=== PATIENT | female | born 1960 | race Caucasian/White ===

== ENCOUNTER 2020-10-07 10:51 | Outpatient (CLI) | payer MEDICARE, SELFPAY ==
[2020-10-07 18:49] LABS: Free T4 Free Thyroxine 0.83 ng/mL (0.78-2.19)
[2020-10-07 19:16] LABS: Cholesterol 308 mg/dL (0-200); HDL Direct 62 mg/dL; Triglycerides 141 mg/dL (<150)
[2020-10-07 19:27] LABS: LDL Cholesterol Direct 202 mg/dL
[2020-10-10 07:07] LABS: Triiodothyronine T3 Free 3.1 pg/mL (2.3-4.2)
== END 2020-10-07 10:52 | disposition home or self-care (01) ==
LOC: ANHBWCLAB 10:54
PROVIDERS: PCP Family Medicine; Visit Provider Family Medicine
DX: E07.9 Disorder of thyroid, unspecified (principal); E78.5 Hyperlipidemia, unspecified
CPT/HCPCS: 36415; 80061; 84439; 84443; 84481

== ENCOUNTER 2020-12-03 10:57 | Outpatient (CLI) | payer MEDICARE, SELFPAY ==
[2020-12-03 20:16] LABS: Add Urine Microscopic? YES; Appearance Urine Clear (Clear); Bilirubin Urine Negative (Negative); Blood Urine Negative (Negative); Color Urine Yellow (Yellow); Glucose Urine UA Negative (Negative); Ketones Urine Negative (Negative); Leukocyte Esterase Ur 1+ LEU/UL (NEGATIVE); Nitrate Urine Negative (Negative); Protein Urine Negative (Negative); RBC Urine 0-2 /hpf (0-2); Specific Grav Ur 1.013 (1.001-1.035); Squamous Epithelial Cell Urine Rare /hpf (Few); Urobilinogen Urine Negative mg/dL (<2.0)
== END 2020-12-03 10:58 | disposition home or self-care (01) ==
PROVIDERS: PCP Family Medicine; Visit Provider Family Medicine
DX: N30.90 Cystitis, unspecified without hematuria (principal)
CPT/HCPCS: 81001; 87086; 87088

== ENCOUNTER 2021-04-02 08:13 | Outpatient (CLI) | payer MEDICARE, SELFPAY ==
[2021-04-02 19:39] LABS: Free T4 Free Thyroxine 1.02 ng/mL (0.78-2.19)
[2021-04-05 08:38] LABS: Triiodothyronine T3 Free 3.2 pg/mL (2.3-4.2)
== END 2021-04-02 08:14 | disposition home or self-care (01) ==
PROVIDERS: PCP Family Medicine; Visit Provider Family Medicine
DX: R53.83 Other fatigue (principal); E03.9 Hypothyroidism, unspecified
CPT/HCPCS: 36415; 84439; 84443; 84481

== ENCOUNTER 2021-04-09 09:40 | Outpatient (CLI) | payer MEDICARE, SELFPAY ==
[2021-04-09 18:36] LABS: Hematocrit 42.8 % (37.0-47.0); Hemoglobin 13.6 g/dL (12.0-15.0); Mean Corpuscular HGB Conc 31.8 g/dl (32-36); Mean Corpuscular Hemoglobin 28.2 pg (26-34); Mean Corpuscular Volume 88.6 fl (80-100); Mean Platelet Volume 10.5 fl (7.4-10.4); Platelet Count Result 293 k/mm3 (150-375); Red Blood Count 4.83 M/mm3 (4.2-5.4); Red Cell Distribution Width 13.8 % (11.5-14.5); White Blood Count 4.9 K/mm3 (4.5-10.0)
[2021-04-09 18:42] LABS: Alanine Aminotransferase 17 U/L (4-35); Albumin Level 4.4 g/dL (3.5-5.1); Alkaline Phosphatase 169 U/L (38-126); Anion Gap 7 mmol/L (8-16); Aspartate Amino Transferase 24 U/L (14-36); Bilirubin,Total 0.5 mg/dL (0.2-1.3); Blood Urea Nitrogen 14 mg/dL (7-17); Calcium 9.6 mg/dL (8.4-10.2); Carbon Dioxide 31 mmol/L (22-30); Chloride 100 mmol/L (98-107); Cholesterol 301 mg/dL (0-200); Estimated Glomerular Filt Rate > 60; Glucose 103 mg/dL (65-110); HDL Direct 51 mg/dL; Potassium 4.4 mmol/L (3.4-5.0); Sodium 138 mmol/L (137-145); Triglycerides 240 mg/dL (<150)
[2021-04-09 18:54] LABS: LDL Cholesterol Direct 213 mg/dL
== END 2021-04-09 09:41 | disposition home or self-care (01) ==
PROVIDERS: PCP Family Medicine; Visit Provider Family Medicine
DX: E07.9 Disorder of thyroid, unspecified (principal); E78.5 Hyperlipidemia, unspecified; R53.83 Other fatigue; E03.9 Hypothyroidism, unspecified; Z00.00 Encounter for general adult medical examination without abnormal findings
CPT/HCPCS: 36415; 80053; 80061; 85027

== ENCOUNTER 2021-10-07 09:36 | Outpatient (CLI) | payer MEDICARE, SELFPAY ==
[2021-10-07 20:00] LABS: Free T4 Free Thyroxine 0.92 ng/mL (0.78-2.19)
[2021-10-07 20:12] LABS: Cholesterol 311 mg/dL (0-200); HDL Direct 57 mg/dL; Triglycerides 137 mg/dL (<150)
[2021-10-07 20:24] LABS: LDL Cholesterol Direct 202 mg/dL
[2021-10-11 05:52] LABS: Triiodothyronine T3 Free 3.3 pg/mL (2.3-4.2)
== END 2021-10-07 09:37 | disposition home or self-care (01) ==
PROVIDERS: PCP Family Medicine; Visit Provider Family Medicine
DX: E03.9 Hypothyroidism, unspecified (principal)
CPT/HCPCS: 36415; 80061; 84439; 84443; 84481

== ENCOUNTER 2022-03-09 13:36 | Outpatient (CLI) | payer MEDICARE, SELFPAY ==
--- NOTE | ~2022-03-09 | XR_ITS ---
EXAM: XR abdomen obstructive series DATE: 03/09/2022 13:57 HISTORY: rt lower abd pain x 1 week . COMPARISON: None available. FINDINGS: Clear lung bases. Lumbar fusion hardware. Lumbar scoliosis. Normal bowel gas pattern. No o rganomegaly. Degenerative lumbar disc disease. Bilateral hip osteoarthritis. Pelvic phleboliths. IMPRESSION: No radiographic evidence of obstruction or ileus. Reviewed, dictated and finalized at location K. [employer]
== END 2022-03-09 13:37 | disposition home or self-care (01) ==
LOC: ANHBWCLAB 13:38 → ANHBWCIMG 14:01
PROVIDERS: PCP Family Medicine; Visit Provider Family Medicine
DX: R10.9 Unspecified abdominal pain (principal)
CPT/HCPCS: 74019

== ENCOUNTER 2022-03-16 12:32 | Outpatient (CLI) | payer MEDICARE, SELFPAY ==
--- NOTE | ~2022-03-16 | US_ITS ---
EXAMINATION: US pelvic complete, US soft tissue pelvic DATE: 03/16/2022 13:34 INDICATION: Abdomen pain. Comparison:No prior studies for comparison. TECHNIQUE: Multiple transabdominal sonographic images of the pelvis performed. Additional evaluation of the right lower abdomen and inguinal region are performed. FINDINGS: The uterus measures 7 x 2.1 x 4 cm. The endometrial complex measures 4.5. The the ovaries are not visualized. There is no evidence for inguinal hernia or abnormal fluid collec tion in the right lower abdomen or inguinal location. There are normal appearing right inguinal lymph nodes. There is no free fluid in the pelvis. There are no abnormal masses seen on either side. IMPRESSION: 1. Unremarkable pelvic ultrasound with evaluation including the right lower abdomen and inguinal loca tion. No abnormal masses, hernia or fluid collections. Reviewed, dictated and finalized at location A. [employer] IMPRESSION: 1. Unremarkable pelvic ultrasound with evaluation including the right lower abd omen and inguinal location. No abnormal masses, hernia or fluid collections.
== END 2022-03-16 12:33 | disposition home or self-care (01) ==
PROVIDERS: PCP Family Medicine; Visit Provider Family Medicine
DX: R10.9 Unspecified abdominal pain (principal)
CPT/HCPCS: 76856; 76857

== ENCOUNTER 2022-04-06 09:46 | Outpatient (CLI) | payer MEDICARE, SELFPAY ==
[2022-04-06 18:51] LABS: Basophils Percent Auto 0.5 % (0.2-1.2); Eosinophils Absolute Auto 0.1 K/mm3 (0-0.3); Eosinophils Percent Auto 1.2 % (0-4.4); Hematocrit 43.7 % (37.0-47.0); Hemoglobin 13.7 g/dL (12.0-15.0); Immature Granulocyte Absolute 0.01 K/mm3 (0.00-0.031); Immature Granulocyte Percent A 0.2 % (0-0.5); Lymphocytes Absolute Auto 1.43 K/mm3 (0.9-3.2); Lymphocytes Percent Auto 35.1 % (18.3-44.2); Mean Corpuscular HGB Conc 31.4 g/dl (32-36); Mean Corpuscular Hemoglobin 27.8 pg (26-34); Mean Corpuscular Volume 88.6 fl (80-100); Mean Platelet Volume 10.3 fl (7.4-10.4); Monocytes Absolute Auto 0.3 K/mm3 (0.1-0.6); Monocytes Percent Auto 7.6 % (2.6-8.5); Neutrophils Absolute Auto 2.3 K/mm3 (1.3-6.7); Neutrophils Percent Auto 55.4 % (45.5-73.1); Platelet Count Result 271 k/mm3 (150-375); Red Blood Count 4.93 M/mm3 (4.2-5.4); Red Cell Distribution Width 14.1 % (11.5-14.5); White Blood Count 4.1 K/mm3 (4.5-10.0)
[2022-04-06 19:33] LABS: Free T4 Free Thyroxine 0.74 ng/mL (0.78-2.19); Vitamin D 25 Hydroxy 72.4 ng/mL
[2022-04-06 19:40] LABS: Alanine Aminotransferase 23 U/L (6-35); Albumin Level 4.9 g/dL (3.5-5.1); Alkaline Phosphatase 122 U/L (38-126); Anion Gap 6 mmol/L (8-16); Aspartate Amino Transferase 31 U/L (14-36); Bilirubin,Total 0.4 mg/dL (0.2-1.3); Blood Urea Nitrogen 10 mg/dL (7-17); Calcium 9.3 mg/dL (8.4-10.2); Carbon Dioxide 32 mmol/L (22-30); Chloride 97 mmol/L (98-107); Cholesterol 279 mg/dL (0-200); Estimated Glomerular Filt Rate > 60; Glucose 72 mg/dL (65-110); HDL Direct 64 mg/dL; Potassium 3.7 mmol/L (3.4-5.0); Sodium 135 mmol/L (137-145); Triglycerides 201 mg/dL (<150)
[2022-04-06 19:51] LABS: LDL Cholesterol Direct 139 mg/dL
[2022-04-09 04:50] LABS: Triiodothyronine T3 Free 3.5 pg/mL (2.3-4.2)
== END 2022-04-06 09:47 | disposition home or self-care (01) ==
PROVIDERS: PCP Family Medicine; Visit Provider Family Medicine
DX: R79.89 Other specified abnormal findings of blood chemistry (principal); E55.9 Vitamin D deficiency, unspecified; E78.5 Hyperlipidemia, unspecified; E03.9 Hypothyroidism, unspecified; Z79.899 Other long term (current) drug therapy
CPT/HCPCS: 36415; 80053; 80061; 82248; 82306; 84439; 84443; 84481; 85025

== ENCOUNTER → 2022-12-01 09:25 | Outpatient (CLI) | payer MEDICARE, SELFPAY ==
--- NOTE | ~2022-12-01 | XR_ITS ---
XR knee LT 3V DATE: 12/01/2022 09:41 INDICATION: Right knee pain and swelling. No known injury. TECHNIQUE: AP, lateral, sunrise views COMPARISON: None FINDINGS: No fracture or dislocation, periosteal reaction or bone destruction. There may be slight suprapatellar knee joint effusion. Mild loss of height of the compartment joint space. No radiopaque intra-articular loose body or chond rocalcinosis. IMPRESSION: Slight suprapatellar knee joint effusion is suggested Mild loss of height of medial compartment joint space Reviewed, dictated and finalized at location B.
== END ==
PROVIDERS: PCP Nurse Practitioner Adult Health; Visit Provider Nurse Practitioner Adult Health
DX: M25.461 Effusion, right knee (principal)
CPT/HCPCS: 73562